=== PATIENT | male | born 1945 | race Caucasian/White ===

== ENCOUNTER → 2016-05-29 | Outpatient (CLI) | payer MEDICARE, OTHER ==
[~2016-05-29] MED LIST: ASPIR 8181 MG PO; CARVEDILOL25 MG PO; CINNAMON500 MG PO; CORDARONE DPS200 MG PO; COUMADIN5 MG PO; IRON325 MG PO; LASIX DPS40 MG PO; MULTI VITAMIN1 EACH PO; NOVOLIN 70100 UNITS/ SQ; OMEGA-3 DPS1000 MG PO; VITAMIN B COMP1 EACH PO; VITAMIN B122500 MCG PO; VITAMIN B3 PO; VITAMIN E400 UNI1 PO; ZOCOR DPS10 MG PO
== END | disposition home or self-care (01) ==
LOC: RESC 12:46
DX: Z51.81 Encounter for therapeutic drug level monitoring (principal); R94.2 Abnormal results of pulmonary function studies; Z79.899 Other long term (current) drug therapy